=== PATIENT | male | born 1960 | race Caucasian/White ===

== ENCOUNTER → 2018-06-07 | Outpatient (CLI) | payer OTHER ==
[~2018-06-07] MED LIST: CALCAVITD; CHOL10002; LEVSOD75; MULVITMIND; OXYB5; SERT100
== END | disposition home or self-care (01) ==
LOC: LAB 12:31 → LAB SHORT 12:31
DX: K29.00 Acute gastritis without bleeding (principal)
CPT/HCPCS: 87338

== ENCOUNTER 2019-10-13 09:16 | Emergency (ER) | payer OTHER ==
[~2019-10-13] VITALS: Ht 152.4 cm; Wt 42.6 kg
[2019-10-13] MEDS ORDERED: FAMC500 PO (11:13)
[2019-10-13] MEDS ORDERED: CEPH500 PO (11:14)
[2019-10-13] MEDS ORDERED: LEVSOD75 PO (11:19)
[2019-10-13] MEDS ORDERED: OXYB5 PO (11:19)
[2019-10-13] MEDS ORDERED: SERT100 PO (11:19)
== END 2019-10-13 11:58 | disposition home or self-care (01) ==
LOC: ER 09:16
DX: L03.211 Cellulitis of face (principal); E03.9 Hypothyroidism, unspecified; Z79.899 Other long term (current) drug therapy
CPT/HCPCS: 99283

== ENCOUNTER 2025-01-21 12:15 | Day surgery (SDC) | payer OTHER ==
[~2025-01-21] VITALS: Ht 152.4 cm; Wt 39.7 kg
[~2025-01-21 12:15] MED LIST changes: +CEPH500 PO; +FAMC500 PO; +LEVSOD75 PO; +OXYB5 PO; +SERT100 PO
[2025-01-21] MEDS ORDERED: Calcium Carbon500 MG PO (12:56)
[2025-01-21] MEDS ORDERED: THERA-D2000 UNIT PO (12:56)
[2025-01-21 14:36] VITALS: BP 135/71
== END 2025-01-21 14:43 | disposition home or self-care (01) ==
LOC: ORSCSDS 12:15
PROVIDERS: Internal Medicine Gastroenterology
PROC: 0DB68ZX Excision of Stomach, Via Natural or Artificial Opening Endoscopic, Diagnostic (ICD-10-PCS; principal; 2025-01-21 13:30)
PROC: 0DB98ZX Excision of Duodenum, Via Natural or Artificial Opening Endoscopic, Diagnostic (ICD-10-PCS; principal; 2025-01-21 13:30)
PROC: 0DBP8ZX Excision of Rectum, Via Natural or Artificial Opening Endoscopic, Diagnostic (ICD-10-PCS; principal; 2025-01-21 13:30)
DX: R13.10 Dysphagia, unspecified (principal); R63.4 Abnormal weight loss; K62.1 Rectal polyp; Z87.19 Personal history of other diseases of the digestive system; E03.9 Hypothyroidism, unspecified; Z85.47 Personal history of malignant neoplasm of testis; Z79.899 Other long term (current) drug therapy
CPT/HCPCS: 88305; 88342; J2704; J7120